=== PATIENT | female | born 1985 | race Caucasian/White ===

== ENCOUNTER 2018-06-20 22:25 | Emergency (ER) | payer OTHER ==
[~2018-06-20] VITALS: Ht 162.6 cm; Wt 70.3 kg
[~2018-06-20 22:25] MED LIST: AMOX1TAB12 PO; COZAAR50 MG PO; KETO10TA2 PO; NORVASC5 MG; ZYRTEC10 M3 PO
[2018-06-20] MEDS ORDERED: COZAAR100 MG (22:37)
[2018-06-20] MEDS ORDERED: NORVASC10 MG (22:38)
== END 2018-06-20 23:57 | disposition home or self-care (01) ==
LOC: ER 22:25
DX: M94.0 Chondrocostal junction syndrome [Tietze] (principal)

== ENCOUNTER 2025-05-02 17:29 | Emergency (ER) | payer OTHER ==
[~2025-05-02] VITALS: Ht 162.6 cm; Wt 76.2 kg
[~2025-05-02 17:29] MED LIST changes: +COZAAR100 MG; +NORVASC10 MG
[2025-05-02] MEDS ORDERED: NIFEDIPINE20 MG (18:31)
[2025-05-02] MEDS ORDERED: hydrOXYzine HCL 25 MG TABLET PO STA (20:37)
[2025-05-02 20:52] LABS: BASO % 0.3 % (0.1-1.2); EOS # 0.21 (0.04-0.54); EOS % 1.6 % (0.7-7.0); HEMATOCRIT 36.7 % (34.1-44.9); HEMOGLOBIN 11.7 g/dL (11.2-15.7); LYMPH # 3.46 (1.18-3.74); LYMPH % 26.6 % (19.3-53.1); MEAN CORPUSCULAR HEMOGLOBIN 25.8 pg (25.6-32.2); MONO % 6.2 % (4.7-12.5); NEUT # 8.45 (1.56-6.13); PLATELET COUNT 392 K/uL (163-369); RED BLOOD COUNT 4.54 M/uL (3.93-5.22); RED CELL DISTRIBUTION WIDTH 14.8 % (11.6-14.4)
[2025-05-02 21:24] LABS: BILIRUBIN TOTAL 0.18 mg/dL (0.3-1.2); CALCIUM 9.9 mg/dL (8.5-10.1); CREATININE SERUM 0.63 mg/dL (0.55-1.02); GFR 104.66; GLOBULINA 4.3 G/DL (2.4-3.5); POTASSIUM 4.13 mEq/L (3.5-5.1); TOTAL PROTEIN 8.3 gm/dL (6.4-8.2)
[2025-05-02] MEDS ORDERED: ATARAX25 MG PO (22:09)
== END 2025-05-02 22:24 | disposition home or self-care (01) ==
LOC: ER 17:38
PROVIDERS: General Practice
DX: F41.9 Anxiety disorder, unspecified (principal); I10 Essential (primary) hypertension